=== PATIENT | female | born 1985 | race African-American/Black ===

== ENCOUNTER 2022-10-14 00:16 | Inpatient (IN) | payer BC ==
[~2022-10-14] VITALS: Ht 161.3 cm; Wt 90.7 kg
[2022-10-14] MEDS ORDERED: LR 1,000 ML IV ONE (06:00)
[2022-10-14] MEDS ORDERED: TERBUTALINE SULFATE 1 MG/ML VIAL SUBCUT ONE (06:00)
[2022-10-14] MEDS ORDERED: NALBUPHINE HCL 10 MG/ML AMP IVP PRN (06:00)
[2022-10-14] MEDS ORDERED: LR 1,000 ML IV SCH (06:00)
[2022-10-14 06:17] LABS: BASOPHILS % (AUTO) 0.7 % (0.0-2.0); EOSINOPHILS # (AUTO) 0.2 K/uL (0.0-0.4); HEMATOCRIT 31.1 % (36-48); HEMOGLOBIN 10.1 g/dL (12.0-16.0); LYMPHOCYTES # (AUTO) 1.5 K/uL (1.0-5.5); LYMPHOCYTES % (AUTO) 28.1 % (20.5-51.5); MEAN CORPUSCULAR HEMOGLOBIN 23 pg (27-31); MEAN CORPUSCULAR HGB CONC 32 % (32-36); MEAN CORPUSCULAR VOLUME 70 fL (79.0-98.0); MONOCYTES # (AUTO) 0.5 K/uL (0.0-1.0); MONOCYTES % (AUTO) 8.9 % (1.7-9.3); NEUTROPHILS # (AUTO) 3.1 K/uL (1.8-7.7); NEUTROPHILS % (AUTO) 58.3 % (40.0-70.0); PLATELET COUNT (AUTO) 187 K/uL (130-430); RED BLOOD CELL COUNT(AUTO) 4.41 MIL/uL (4.2-6.2); RED CELL DISTRIBUTION WIDTH 15.5 % (9.0-15.0); WHITE BLOOD COUNT (AUTO) 5.2 K/uL (4.8-10.8)
[2022-10-14] MEDS ORDERED: hydrALAZINE HCL 20 MG/ML VIAL ONE (06:56)
[2022-10-14 07:06] LABS: BILIRUBIN,URINE NEGATIVE (NEGATIVE); BLOOD, URINE NEGATIVE (NEGATIVE); COLOR,URINE YELLOW (YELLOW); GLUCOSE,URINE NEGATIVE (NEGATIVE); KETONES,URINE NEGATIVE (NEGATIVE); LEUKOCYTE ESTERASE ,URINE NEGATIVE (NEGATIVE); NITRITE, URINE NEGATIVE (NEGATIVE); PROTEIN URINE NEGATIVE (NEGATIVE)
[2022-10-14 07:13] LABS: CALCIUM 8.3 mg/dL (8.4-11.0); CREATININE 0.66 mg/dL (0.55-1.30)
[2022-10-14 07:17] LABS: ALBUMIN 2.5 g/dL (3.4-4.8)
[2022-10-14 07:30] LABS: CLARITY/URINE CLEAR (CLEAR)
[2022-10-14 08:31] LABS: PROTHROMBIN TIME 10.1 SECS (9.5-12.5)
[2022-10-14] MEDS: OXYTOCIN/0.9 % SODIUM CHLORIDE 1,000 ML IV SCH (09:00)
[2022-10-14] MEDS ORDERED: ROPIVACAINE HCL/PF 0.2% 200 ML ONE (16:38)
[2022-10-14] MEDS ORDERED: fentaNYL CITRATE/PF 100 MCG/2 ML AMP ONE (16:38)
[2022-10-14] MEDS ORDERED: FENT2mCg/mL-ROPIVA0.2%/NS EPID 200 ML EP SCH (17:30)
[2022-10-14] MEDS ORDERED: LR 500 ML IV ONE (17:30)
[2022-10-14] MEDS: hydrALAZINE HCL 20 MG/ML VIAL IVP PRN (22:55)
[2022-10-15] MEDS: hydrALAZINE HCL 20 MG/ML VIAL IVP PRN ×2 (02:46→19:03)
[2022-10-15] MEDS ORDERED: ROPIVACAINE HCL/PF 0.2% 200 ML ONE ×2 (06:24→21:51)
[2022-10-15] MEDS: ONDANSETRON HCL 4 MG/2 ML VIAL IVP PRN ×2 (08:08→20:36)
[2022-10-15] MEDS: OXYTOCIN/0.9 % SODIUM CHLORIDE 1,000 ML IV SCH (17:44)
[2022-10-16] MEDS: hydrALAZINE HCL 20 MG/ML VIAL IVP PRN (09:04)
[2022-10-16] MEDS ORDERED: BUPIVACAINE /PF 0.25% 30 ML VIAL INJ ONE (11:56)
[2022-10-16] MEDS ORDERED: ROPIVACAINE HCL/PF 0.2% 200 ML ONE (12:07)
[2022-10-16] MEDS ORDERED: LIDOCAINE PF 1% 30ML(POUR BTL) INJ ONE (12:40)
[2022-10-16] MEDS ORDERED: NALOXONE HCL 0.4 MG/ML AMP (NARCAN) ONE (12:40)
[2022-10-16] MEDS ORDERED: LIGHT MINERAL OIL 10 ML VIAL MC ONE (12:40)
[2022-10-16] MEDS ORDERED: HYDROmorphone 1 MG/ML INJ. CARTRIDGE ONE ×2 (12:49→14:46)
[2022-10-16] MEDS ORDERED: TERBUTALINE SULFATE 1 MG/ML VIAL ONE (12:58)
[2022-10-16] MEDS ORDERED: MORPHINE SULFATE 10 MG/ML VIAL ONE (13:04)
[2022-10-16] MEDS ORDERED: LR 1,000 ML IV.SOLN IV ONE (13:04)
[2022-10-16] MEDS ORDERED: MIDAZOLAM HCL 5 MG/5 ML VIAL ONE (13:04)
[2022-10-16] MEDS ORDERED: NS IRRIG SOLN 1000 ML IR ONE (13:04)
[2022-10-16] MEDS ORDERED: METHYLERGONOVINE MALEATE 0.2 MG/ML AMP ONE ×2 (13:04→13:07)
[2022-10-16] MEDS ORDERED: SEVOFLURANE 15 MIN GAS INH ONE (13:04)
[2022-10-16] MEDS ORDERED: PROPOFOL 200MG/ 20ML VIAL (DIPRIVAN) IV ONE (13:04)
[2022-10-16] MEDS ORDERED: ROCURONIUM BROMIDE 10 MG/ML (ZEMURON) ONE (13:04)
[2022-10-16] MEDS ORDERED: ALBUMIN HUMAN 5% 12.5 GM/250 ML VIAL IV ONE (13:04)
[2022-10-16] MEDS ORDERED: SUCCINYLCHOLINE CHLORIDE 20 MG/ML(QUELICIN) ONE (13:04)
[2022-10-16] MEDS ORDERED: KETOROLAC TROMETHAMINE 60 MG/2 ML VIAL IM PRN (14:30)
[2022-10-16] MEDS ORDERED: hydrALAZINE HCL 20 MG/ML VIAL IVP PRN (14:30)
[2022-10-16] MEDS ORDERED: NALOXONE HCL 0.4 MG/ML AMP (NARCAN) IVP PRN ×3 (14:30→16:15)
[2022-10-16] MEDS ORDERED: MORPHINE SULFATE 10MG/10ML PF AMP EP SCH (14:30)
[2022-10-16] MEDS ORDERED: METOCLOPRAMIDE HCL 10 MG/2 ML VIAL IVP PRN (14:30)
[2022-10-16] MEDS ORDERED: MIDAZOLAM HCL 5 MG/5 ML VIAL IVP PRN (14:30)
[2022-10-16] MEDS ORDERED: ONDANSETRON HCL 4 MG/2 ML VIAL IVP PRN (14:30)
[2022-10-16] MEDS ORDERED: MEPERIDINE HCL/PF 25 MG/ML DISP.SYRIN IVP PRN (14:30)
[2022-10-16] MEDS ORDERED: HYDROmorphone 1 MG/ML INJ. CARTRIDGE IVP PRN (14:30)
[2022-10-16] MEDS ORDERED: RHO(D) IMMUNE GLOBULIN/MALTOSE 1500 UNITS/1.3 ML (WINHRO) IM PRN (16:15)
[2022-10-16] MEDS ORDERED: HYDROcodone/ACETAMIN 5-325 MG TAB (NORCO/ VICODIN) PO PRN (16:15)
[2022-10-16] MEDS ORDERED: BISACODYL 10 MG/SUPPOSITORY RC PRN (16:15)
[2022-10-16] MEDS ORDERED: LR 1,000 ML IV SCH (16:15)
[2022-10-16] MEDS ORDERED: ANUSOL 1 EA SUPP.RECT (PREPARATION H) RC PRN (16:15)
[2022-10-16] MEDS ORDERED: OXYTOCIN/0.9 % SODIUM CHLORIDE 1,000 ML IV ONE (16:15)
[2022-10-16] MEDS ORDERED: MEASLES,MUMPS&RUBELLA VACC/PF 12500 UNIT/0.5 ML VIAL SUBQ PRN (16:15)
[2022-10-16] MEDS ORDERED: LANOLIN 7 GM OINT. TP PRN (16:15)
[2022-10-16] MEDS ORDERED: DIPHTH,PERTUSS(ACELL),TET VAC 0.5 ML VIAL (Tdap) I.M. PRN (16:15)
[2022-10-16] MEDS: HYDROmorphone 1 MG/ML INJ. CARTRIDGE IM PRN ×2 (16:32→17:14)
[2022-10-16] MEDS: CEFAZOLIN 1 GM IVPB PREMIX 50 ML IV SCH ×2 (18:45→23:36)
[2022-10-16 19:06] LABS: BASOPHILS % (AUTO) 0.2 % (0.0-2.0); EOSINOPHILS % (AUTO) 0.3 % (0.0-4.0); HEMATOCRIT 27.7 % (36-48); HEMOGLOBIN 8.9 g/dL (12.0-16.0); LYMPHOCYTES # (AUTO) 1.1 K/uL (1.0-5.5); LYMPHOCYTES % (AUTO) 13.6 % (20.5-51.5); MEAN CORPUSCULAR HEMOGLOBIN 23 pg (27-31); MEAN CORPUSCULAR HGB CONC 32 % (32-36); MEAN CORPUSCULAR VOLUME 71 fL (79.0-98.0); MONOCYTES # (AUTO) 0.6 K/uL (0.0-1.0); MONOCYTES % (AUTO) 7.3 % (1.7-9.3); NEUTROPHILS # (AUTO) 6.4 K/uL (1.8-7.7); NEUTROPHILS % (AUTO) 78.6 % (40.0-70.0); PLATELET COUNT (AUTO) 182 K/uL (130-430); RED BLOOD CELL COUNT(AUTO) 3.93 MIL/uL (4.2-6.2); RED CELL DISTRIBUTION WIDTH 15.8 % (9.0-15.0); WHITE BLOOD COUNT (AUTO) 8.1 K/uL (4.8-10.8)
[2022-10-16] MEDS: DIPHENHYDRAMINE INJ 50 MG/ML VIAL IM PRN ×2 (19:08→23:36)
[2022-10-16] MEDS ORDERED: TEMAZEPAM 15 MG CAPSULE PO PRN (21:00)
[2022-10-16] MEDS: HYDROmorphone 2 MG/ML VIAL IVP PRN (21:04)
[2022-10-16] MEDS: OXYTOCIN/0.9 % SODIUM CHLORIDE 1,000 ML IV SCH (21:23)
[2022-10-17] MEDS: HYDROmorphone 2 MG/ML VIAL IVP PRN ×4 (00:35→17:35)
[2022-10-17] MEDS: CEFAZOLIN 1 GM IVPB PREMIX 50 ML IV SCH (05:39)
[2022-10-17] MEDS: SIMETHICONE 80 MG TAB.CHEW PO PRN ×4 (05:56→21:14)
[2022-10-17] MEDS: OXYTOCIN/0.9 % SODIUM CHLORIDE 1,000 ML IV SCH (06:10)
[2022-10-17 06:56] LABS: BASOPHILS % (AUTO) 0.2 % (0.0-2.0); EOSINOPHILS # (AUTO) 0.1 K/uL (0.0-0.4); EOSINOPHILS % (AUTO) 1.3 % (0.0-4.0); HEMATOCRIT 25.1 % (36-48); HEMOGLOBIN 8.2 g/dL (12.0-16.0); LYMPHOCYTES # (AUTO) 0.8 K/uL (1.0-5.5); MEAN CORPUSCULAR HEMOGLOBIN 23 pg (27-31); MEAN CORPUSCULAR HGB CONC 33 % (32-36); MEAN CORPUSCULAR VOLUME 70 fL (79.0-98.0); MONOCYTES # (AUTO) 0.5 K/uL (0.0-1.0); MONOCYTES % (AUTO) 8.4 % (1.7-9.3); PLATELET COUNT (AUTO) 179 K/uL (130-430); RED BLOOD CELL COUNT(AUTO) 3.58 MIL/uL (4.2-6.2); RED CELL DISTRIBUTION WIDTH 15.9 % (9.0-15.0); WHITE BLOOD COUNT (AUTO) 6.5 K/uL (4.8-10.8)
[2022-10-17 08:13] LABS: NEUTROPHILS % (AUTO) 77.1 % (40.0-70.0)
[2022-10-17] MEDS: DOCUSATE SODIUM 100 MG CAPSULE PO SCH ×2 (08:36→21:14)
[2022-10-17] MEDS: DIPHENHYDRAMINE INJ 50 MG/ML VIAL IM PRN (08:36)
[2022-10-17] MEDS ORDERED: hydrALAZINE HCL 20 MG/ML VIAL ONE (10:20)
[2022-10-17] MEDS ORDERED: hydrALAZINE HCL 10 MG TABLET PO ONE ×2 (10:30→16:45)
[2022-10-17] MEDS: hydrALAZINE HCL 20 MG/ML VIAL IVP PRN ×8 (10:31→19:58)
[2022-10-17] MEDS: OXYCODONE/ACETAMINOPHEN 5-325 TABLET PO PRN ×2 (12:14→21:22)
[2022-10-17] MEDS ORDERED: MAGNESIUM SULFATE IN WATER 100 ML IV ONE (18:15)
[2022-10-17] MEDS: MAGNESIUM SULFATE IN WATER 500 ML IV PRN (19:33)
[2022-10-17] MEDS ORDERED: hydrALAZINE HCL 10 MG TABLET PO SCH (21:00)
[2022-10-17] MEDS: hydrALAZINE HCL 10 MG TABLET PO SCH (21:13)
[2022-10-17] MEDS: SENNOSIDES/DOCUSATE SODIUM 1 TAB TABLET(SENOKOT-S) PO SCH (21:14)
[2022-10-18] MEDS: IBUPROFEN 600 MG TABLET PO SCH ×5 (00:10→23:39)
[2022-10-18] MEDS: OXYCODONE/ACETAMINOPHEN 5-325 TABLET PO PRN ×3 (02:56→21:45)
[2022-10-18] MEDS: hydrALAZINE HCL 10 MG TABLET PO SCH ×3 (05:32→21:56)
[2022-10-18] MEDS: SIMETHICONE 80 MG TAB.CHEW PO PRN ×5 (05:38→21:44)
[2022-10-18] MEDS: MAGNESIUM SULFATE IN WATER 500 ML IV PRN ×2 (05:41→15:15)
[2022-10-18] MEDS: DOCUSATE SODIUM 100 MG CAPSULE PO SCH ×2 (08:54→21:43)
[2022-10-18] MEDS: SENNOSIDES/DOCUSATE SODIUM 1 TAB TABLET(SENOKOT-S) PO SCH (21:44)
[2022-10-19] MEDS: OXYCODONE/ACETAMINOPHEN 5-325 TABLET PO PRN ×2 (03:29→18:54)
[2022-10-19] MEDS: SIMETHICONE 80 MG TAB.CHEW PO PRN ×4 (03:30→22:09)
[2022-10-19] MEDS: IBUPROFEN 600 MG TABLET PO SCH ×4 (06:37→22:15)
[2022-10-19] MEDS: hydrALAZINE HCL 10 MG TABLET PO SCH ×3 (06:52→22:14)
[2022-10-19] MEDS: DOCUSATE SODIUM 100 MG CAPSULE PO SCH (09:07)
[2022-10-19] MEDS ORDERED: OXYC-128 PO (17:21)
== END 2022-10-19 23:30 | disposition home or self-care (01) | DRG 786 ==
LOC: SPU 00:16 → INTOOBSV 00:16 → OBSVTOIN 05:45 → SPU 10-16 13:08
PROVIDERS: ADMIT Specialist; ATTEND Specialist
PROC: 10D00Z1 Extraction of Products of Conception, Low, Open Approach (ICD-10-PCS; principal; 2022-10-16 13:04)
DX: O77.0 Labor and delivery complicated by meconium in amniotic fluid (principal); O45.93 Premature separation of placenta, unspecified, third trimester; O71.1 Rupture of uterus during labor; O76 Abnormality in fetal heart rate and rhythm complicating labor and delivery; O13.4 Gestational [pregnancy-induced] hypertension without significant proteinuria, complicating childbirth; O14.94 Unspecified pre-eclampsia, complicating childbirth; O40.3XX0 Polyhydramnios, third trimester, not applicable or unspecified; Z20.822 Contact with and (suspected) exposure to COVID-19; Z3A.38 38 weeks gestation of pregnancy; Z37.0 Single live birth
CPT/HCPCS: 36415; 74018; 80053; 81003; 84550; 85025; 85384; 85610-TC; 85730-TC; 86592; 86886; 86900; 86901; 88307; G0378; J0330; J0360; J0690; J1170; J1200; J1885; J2001; J2210; J2250; J2270; J2310; J2405; J2590; J2704; J3010; J3105; J3475; J3490; J7120; P9041